=== PATIENT | female | born 1975 | race Caucasian/White ===

== ENCOUNTER 2018-07-05 14:12 | Emergency (ER) | payer MEDICAID ==
[~2018-07-05] VITALS: Ht 152.4 cm; Wt 81.6 kg
[2018-07-05 14:21] VITALS: Ht 152.4 cm; Wt 81.6 kg
[2018-07-05 15:55] VITALS: BP 125/75
== END 2018-07-05 15:55 | disposition home or self-care (01) ==
LOC: ED 14:12
DX: H16.002 Unspecified corneal ulcer, left eye (principal)

== ENCOUNTER 2018-09-13 13:57 | Emergency (ER) | payer MEDICAID ==
[~2018-09-13] VITALS: Ht 160 cm; Wt 81.6 kg
[2018-09-13 14:08] VITALS: Ht 160 cm; Wt 81.6 kg
[2018-09-13 15:30] VITALS: BP 128/75
== END 2018-09-13 15:30 | disposition home or self-care (01) ==
LOC: ED 13:57
DX: H16.001 Unspecified corneal ulcer, right eye (principal)

== ENCOUNTER 2020-08-18 01:29 | Emergency (ER) | payer MEDICAID ==
[~2020-08-18] VITALS: Ht 152.4 cm; Wt 82.6 kg
[2020-08-18 01:36] VITALS: Ht 152.4 cm; Wt 82.6 kg
[2020-08-18 02:29] VITALS: BP 128/82
== END 2020-08-18 02:28 | disposition home or self-care (01) ==
LOC: ED 01:29
DX: T16.2XXA Foreign body in left ear, initial encounter (principal); W45.8XXA Other foreign body or object entering through skin, initial encounter; Y93.89 Activity, other specified; Y92.89 Other specified places as the place of occurrence of the external cause; Y99.8 Other external cause status
CPT/HCPCS: 90715; J2001